=== PATIENT | female | born 1975 | race Caucasian/White ===

== ENCOUNTER → 2020-11-30 | Outpatient (CLI) | payer BC, OTHER ==
--- NOTE | 2020-11-30 09:08 | Diagnostic Imaging Report ---
INDICATION: Fall. Left knee pain. FINDINGS: 3 views. There is advanced tricompartmental arthritic disease. There is narrowing of the joint space. There are no fractures. There are hypertrophic changes present throughout involving the femoral condyles, tibial plateau and patella. IMPRESSION: Advanced tricompartmental arthritic changes with no evidence of acute fracture. Dictated by: Dictated on workstation # [id number]
== END ==
LOC: RAD FS 08:22
PROVIDERS: ATTEND Nurse Practitioner
DX: M17.12 Unilateral primary osteoarthritis, left knee (principal)
CPT/HCPCS: 73562